=== PATIENT | female | born 1965 | race Caucasian/White ===

== ENCOUNTER → 2017-03-23 | Outpatient (CLI) | payer OTHER ==
--- NOTE | 2017-03-23 15:41 | CPEKG ---
Heart Rate: 68 RR Interval: 882 P-R Interval: 144 QRSD Interval: 88 QT Interval: 436 QTC Interval: 464 P [place]: 64 QRS [place]: 62 T Wave [place]: 52 EKG Severity - NORMAL ECG - EKG Impression: SINUS RHYTHM EKG Impression: EARLY R WAVE PROGRESSION Electronically Signed By: Chandra Orellana 23-Mar-2017 16:49:23
== END ==
LOC: FCP 15:30
PROVIDERS: ATTEND Family Medicine
DX: Z01.818 Encounter for other preprocedural examination (principal)